=== PATIENT | male | born 1975 | race Caucasian/White ===

== ENCOUNTER → 2020-09-02 | Outpatient (REF) | payer OTHER ==
[2020-09-02 17:11] LABS: C REACTIVE PROTEIN QUANTITATIV 0.33 MG/DL (0.00-0.30)
[2020-09-02 17:47] LABS: HEPATITIS B SURFACE ANTIGEN NEGATIVE (NEGATIVE)
[2020-09-02 18:14] LABS: HEPATITIS C VIRUS ABY INDEX < 0.0 INDEX (<0.8)
[2020-09-02 18:15] LABS: HEPATITIS B CORE ANTIBODY IGM NEGATIVE (NEGATIVE)
[2020-09-02 18:16] LABS: HEPATITIS A ANTIBODY IGM NEGATIVE (NEGATIVE)
== END ==
LOC: M LAB REF 16:26
PROVIDERS: ATTEND Registered Nurse
DX: Z00.00 Encounter for general adult medical examination without abnormal findings (principal); R10.32 Left lower quadrant pain

== ENCOUNTER → 2020-10-24 | Outpatient (CLI) | payer OTHER | LOC: M LABSMTC 08:14 | PROVIDERS: ATTEND Anesthesiology | DX: Z01.812 Encounter for preprocedural laboratory examination (principal); Z20.822 Contact with and (suspected) exposure to COVID-19 ==

== ENCOUNTER 2020-10-29 08:26 | Day surgery (SDC) | payer OTHER ==
[~2020-10-29] VITALS: Ht 188 cm; Wt 100.2 kg
[~2020-10-29 08:26] MED LIST: LIDOCAINE 2% 100MG/5ML SDV (FOR ANES.) As Ordered ONE; NS 1,000 ML IV ONE; propofoL 200 MG/20 ML VIAL As Ordered ONE
--- OUTSIDE RECORDS SUMMARY | 2020-10-29 08:40 | CCD | Continuity of Care Document ---
Author Author Hussain KEN [facility] Organization Unknown Address [address] [address] Phone [phone] Care Team Providers Care Dialysis Patient Care Technician Name Role Phone Cammy Ken AUTM [phone] Problems Description No Information Available Social History Type Date Description Comments Sex Unknown ETOH Use Currently consumes alcohol Twice weekly, 5 drinks at a time Recreational Drug Use Denies Drug Use Tobacco Use Start: Unknown Patient is a current smoker, smo kes every day 1 ppd x20 years Exercise Type/Frequency Exercises regularly 4x/ week, cardio and lifts weights Guns in Home Yes, Locked Up Allergies, Adverse Reactions, Alerts Description No Known Drug Allergies Medications Active Medications SIG Qnty Indications Ordering Provide r Date Proair HFA 108(90Base) mcg/Act Aer osol 2 puffs up to four times daily as needed for wheezing 8.500gm R06.2 Memo Fung MD 02/21/2020 Famotidine 20mg Tablets Take One Tablet By Mouth Every Day 30tabs Memo Fung MD 10/23/2019 Medications Administered in Office Medication SIG Qnty Indications Ordering Provider Date Immunization Adminstration,1 Vaccine/Tox oid Injection CATHY Bro 9 Immunizations CPT Code Status Date Vaccine Lot # [id number] Given 08/23/2019 Influenza Vaccin e Quadrivalent Preser/Antibiotic Free Im Use [id number] Vital Signs Date Vital Result Comment 09/02/2020 8:28am BP Systolic 132 mmHg BP Diastolic 80 mmHg Heart Rate 91 /min Height 72 inches 6'0" Weight 220.00 lb O2 % BldC Oximetry 98 % BMI (Body Mass Index) 29.8 kg/m2 02/21/2020 8:00am BP Systolic 128 mmHg LT Arm BP Diastolic 80 mmHg LT Arm Heart Rate 88 /min Height 72 inches 6'0" Weight 219.00 lb BMI (Body Mass Index) 29.7 kg/m2 Results Test Acquired Date Facility Test Result H/L Range Note Complete Blood Count 09/02/2020 [place] [employer] jack ratliff Supervisor [employer]: [place] [address] [phone] WBC 6.9 x10*3/UL 4.1 - 10.9 RBC 5.12 x10*6/UL 4.20 - 6.30 Hemoglobin 14.4 g/dL 12.0 - 18.0 Hematocrit 41.5 % 37.0 - 51.0 MCV 80.9 fL 80.0 - 97.0 MCH 28.1 pg 26.0 - 32.0 MCHC 34.7 g/dL 31.0 - 38.0 RDW 13.3 % 11.6 - 13.7 PLT 276 x10*3/UL 140 - 440 MPV 7.5 FL Low 7.8 - 11.0 Lymph % 28.5 % 10.0 - 58.5 Mid % 6.9 % 1.7 - 9.3 Neut % 64.6 % 37.0 - 92.0 Lymph # 1.9 x10*3/UL 0.6 - 4.1 Mid # 0.5 x10*3/UL 0.1 - 0.6 Neut # 4.5 x10*3/UL 2.0 - 7.8 Comprehensive Chem Profile 09/02/2020 [place] jack Mason Supervisor [employer]: [place] [address] [phone] Glucose 93 mg/dL 74 - 99 1 BUN 18 mg/dL 7 - 18 Creatinine 1.2 mg/dL 0.6 - 1.3 Sodium 143 mEq/L 136 - 145 Potassium 4.7 mEq/L 3.5 - 5.1 Chloride 105 mEq/L 98 - 107 Carbon Dioxide 28 mEq/L 21 - 32 Calcium 9.3 mg/dL 8.5 - 10.1 Alk. Phosphatase 58 mg/dL 46 - 116 Total Bilirubin 0.4 mg/dL 0.2 - 1.0 Ast (Sgot) 42 U/L High 15 - 37 2 Alt (SGPT) 94 U/L High 12 - 78 Albumin 4.1 g/dL 3.4 - 5.0 Total Protein 7.3 g/dL 6.4 - 8.2 A/G Ratio 1.28 CALC 1.00 - 1.90 GFR >= 60 mL/min >60 GFR >= 60 mL/min >60 3 Lipid Profile 09/02/2020 [facility] Supervisor [place] [employer]: Dr Memo Fung [place] [id number] [phone] Cholesterol 244 mg/dL High 131 - 200 Triglycerides 86 mg/dL 30 - 150 HDL Cholesterol 56 mg/dL 35 - 60 LDL (Calculated) 171 CALC High 50 - 159 Laboratory test finding 09/02/2020 [facility] Supervisor [place]: Dr Memo Fung [place] [id number] [phone] Sed Rate 16 mm/hr High 0 - 15 Laboratory test finding 09/02/2020 [facility] [address] [place] [address] [phone] C Reactive Protein Quantitativ 0.33 mg/dL High 0 .00-0.30 Hepatitis Profile 09/02/2020 [facility] nter [address] [place] [address] [phone] Hepatitis C Virus Sarah Index < 0.0 INDEX Normal <0. 8 Hepatitis B Surface Antigen NEGATIVE Normal Negative Hepatitis B Core Antibody Igm NEGATIVE Normal Negative Hepatitis A Antibody Igm NEGATIVE Normal Negative 1 100-125 mg/dL PRE-DIABET ES/FASTING >126 mg/dL DIABETES/FASTING 2 NOTE: AST,ALT VERIFIED 3 CHRONIC KIDNEY DISEASE STAGI NG PER NKF STAGE I & II GFR >= 60 NORMAL TO MILDLY DECREASED STAGE III GFR 30-59 MODERATELY DECREASED STAGE IV GFR 15-29 SEVERELY DECREASED STAGE V GFR <15 VERY LITTLE GFR LEFT ESRD GFR <15 ON DIGITIZER Procedures Description No Information Available Medical Devices Description No Information Available Encounters Description No Information Available Assessments Date Code Description Provider 09/02/2020 Z00.00 Encounter for genera l adult medical examination without abnormal findings CATHY Bro 09/02/2020 K21.9 Gastro-esophageal reflux disease without esophagitis CATHY Bro 09/02/2020 R10.32 Left lower quadrant pain CATHY Bro 09/02/2020 E78.00 Pure hypercholesterolemia, unspe cified Cammy Ken, ADOLESCENT PSYCHIATRIST 09/02/2020 R06.2 Wheezing Cammy Ken, F RN INTERN 09/02/2020 E66.3 Overweight Cammy Ken, Neptali RN INTERN 09/02/2020 M54.5 Low back pain Neptali Bro RN INTERN Plan of Treatment Future Appointment(s):* 09/03/2021 8:00 am - CATHY Bro at [facility] 09/02/2020 - CATHY Bro* Z00.00 Encounter for general adult medical examination without abnormal findings* Comments:* Follow up annually. Normal exam and is healthy. Continue diet and exercise. Declines flu vaccine. * K21.9 Gastro-esophageal reflux disease without esophagitis* Comments:* Uses famotidine when needed. Provides good relief. * R10.32 Left lower quadrant pain* New Xrays:* CT Abd/Pelvis With And Without Contrast, Scheduled: 09/03/20 * Comments:* Check CBC, ESR and CRP. I will schedule a CT abdomen/pelvis to further evaluate. * E78.00 Pure hypercholesterolemia, unspecified* Comments:* Lipids are pending. Encouraged Mediterranean diet; Low fat/high fiber diet encouraged coupled with regular exercise. * R06.2 Wheezing* Comments:* Very occasional, but does use the ProAir if needed. The inhaler does alleviate his symptoms. * E66.3 Overweight* Comments:* Weight loss would be favorable- portion control, balanced diet and regular exercise are encouraged. * M54.5 Low back pain* Comments:* Improving. We discussed heat TID, topical analgesics as directed as well as ibuprofen daily with breakfast x 7 days as directed. I encouraged rest and avoiding activity that will aggrevate the pain. I did recommend gentle stretches and some activity, but those of little resistance. May consider chiropractor in the future if he desires, but I have asked him to wait until after CT abdomen/pelvis. * All * Comments:* Follow up in one year, sooner PRN. Encouraged balanced diet, 4-5 servings of fresh fruits and vegetables daily. Recommended at least 30 minutes of exercise daily and eight 8 oz. glasses of water daily.Testicular self exams encouraged monthly.RTC PRN for acute illness.Flu shot advised, declined by patient. COVID precautions are discussed and social distancing/mask use/ frequent hand washing and sanitizing are encouraged. Functional Status Description No Information Available Mental Status Description No Information Available Referrals Description No Information Available
--- OUTSIDE RECORDS SUMMARY | 2020-10-29 08:40 | CCD | Continuity of Care Document ---
Author Author Hussain KEN [facility] Organization Unknown Address [address] [address] Phone [phone] Care Team Providers Care Respiratory Care Faculty Name Role Phone Cammy Ken AUTM [phone] Problems Description No Information Available Social History [...] SIG Qnty Indications Ordering Provide r Date Chantix Starting Month Joao 0.5mg X 11 & 1 mg X 42 Tablets take as directed 53tabs Memo Fung MD 09/04/2020 Chantix Continuing Month Joao 1mg T ablets take 1 tablet by mouth every day as directed 56tabs Col hansel Fung MD 09/04/2020 Proair HFA 108(90Base) mcg/Act Aer osol 2 [...] CPT Code Status Date Vaccine Lot # [id number] Given 08/23/2019 Influenza Vaccin e Quadrivalent Preser/Antibiotic Free Im Use [id number] Vital Signs Date Vital Result Comment 09/02/2020 [...] H/L Range Note Complete Blood Count 09/02/2020 [place] [employer] jack ratliff Seam Feller: [place] [address] [phone] WBC 6.9 x10*3/UL 4.1 - 10.9 RBC [...] 2.0 - 7.8 Comprehensive Chem Profile 09/02/2020 [place] jack Mason Seam Feller: [place] [address] [phone] Glucose 93 mg/dL 74 - 99 1 [...] 60 mL/min >60 3 Lipid Profile 09/02/2020 [facility] Seam Feller: Dr Memo [place] [id number] [phone] Cholesterol 244 mg/dL High 131 - 200 Triglycerides 86 mg/dL 30 - 150 HDL Cholesterol 56 mg/dL 35 - 60 LDL (Calculated) 171 CALC High 50 - 159 Laboratory test finding 09/02/2020 [facility] Seam Feller: [place] [address] [phone] Sed Rate 16 mm/hr High 0 - 15 Laboratory test finding 09/02/2020 [facility] [address] [place] [address] [phone] C Reactive Protein Quantitativ 0.33 mg/dL High 0 .00-0.30 Hepatitis Profile 09/02/2020 [facility] nter [address] [place] [address] [phone] Hepatitis C Virus Sarah Index < 0.0 [...] LITTLE GFR LEFT ESRD GFR <15 ON PEANUT SEPARATOR Procedures Description No Information Available Medical Devices Description No Information Available Encounters Type Date Location Provider Dx Diagnosis Office Visit 09/02/2020 8:40a [facility] CATHY Mejia Z00.00 Encntr for general adult medical exam w/ o abnormal findings K21.9 Gastro-esophageal reflux dis ease without esophagitis R10.32 Left lower quadrant pain E78.00 Pure hypercholesterolemia, u nspecified R06.2 Wheezing M54.5 Low back pain E66.3 Overweight Z68.29 Body mass index [BMI] 29.0-2 9.9, adult Assessments Date Code Description Provider 09/02/2020 Z00.00 Encounter for genera l adult medical examination without abnormal findings Cammy Ken, CATHY 09/02/2020 K21.9 Gastro-esophageal reflux disease without esophagitis CATHY Bro 09/02/2020 R10.32 Left lower quadrant pain CATHY Bro 09/02/2020 E78.00 Pure hypercholesterolemia, unspe cified CATHY Bro 09/02/2020 R06.2 Wheezing Cammy Ken, F DISTRIBUTION ENGINEER 09/02/2020 M54.5 Low back pain Cammy Ken, F DISTRIBUTION ENGINEER 09/02/2020 E66.3 Overweight Cammy Ken, F DISTRIBUTION ENGINEER 09/02/2020 Z68.29 Body mass index [BMI] 29.0-29.9, adult CATHY Bro Plan of Treatment Future Appointment(s):* 09/03/2021 8:00 am - CATHY Bro at [facility] 09/02/2020 - CATHY Bro* Z00.00 Encounter for general adult medical examination without abnormal findings* Comments:* Follow up annually. Normal exam and is healthy. Continue diet and exercise. Declines flu vaccine. * K21.9 Gastro-esophageal reflux disease without esophagitis* Comments:* Uses famotidine when needed. Provides good relief. * R10.32 Left lower quadrant pain* Comments:* Check CBC, ESR and CRP. I will schedule a CT abdomen/pelvis to further evaluate. * E78.00 Pure hypercholesterolemia, unspecified* Comments:* Lipids are pending. Encouraged Mediterranean diet; Low fat/high fiber diet encouraged coupled with regular exercise. * R06.2 Wheezing* Comments:* Very occasional, but does use the ProAir if needed. The inhaler does alleviate his symptoms. * M54.5 Low back pain* Comments:* Improving. [...] to wait until after CT abdomen/pelvis. * E66.3 Overweight* Comments:* Weight loss would be favorable- portion control, balanced diet and regular exercise are encouraged. * Z68.29 Body mass index [BMI] 29.0-29.9, adult * All * Comments:* Follow up in [...] Mental Status Description No Information Available Referrals Refer to Reason for Referral Status Appt Date Mehul Lerma DO CONSULT FOR LLQ PAIN AND ABNORMAL CT ABD/PELVI S [facility] [address], [address] [place] [address] [phone]
--- OUTSIDE RECORDS SUMMARY | 2020-10-29 08:40 | CCD | Continuity of Care Document ---
Author Author Hussain KEN [facility] Organization Unknown Address [address] [address] Phone [phone] Care Team Providers Care Divider Operator Name Role Phone Cammy Ken AUTM [phone] Problems Description No Information Available Social History [...] CPT Code Status Date Vaccine Lot # [id number] Given 08/23/2019 Influenza Vaccin e Quadrivalent Preser/Antibiotic Free Im Use [id number] Vital Signs Date Vital Result Comment 09/02/2020 [...] H/L Range Note Complete Blood Count 09/02/2020 [place] [employer] Intern jack ratliff [employer] Banker: [place] [address] [phone] WBC 6.9 x10*3/UL 4.1 - 10.9 RBC [...] 2.0 - 7.8 Comprehensive Chem Profile 09/02/2020 [place] jack Mason [employer] Banker: [place] [address] [phone] Glucose 93 mg/dL 74 - 99 1 [...] 60 mL/min >60 3 Lipid Profile 09/02/2020 [facility] [employer] Banker: Dr Memo Fung [place] [id number] [phone] Cholesterol 244 mg/dL High 131 - 200 Triglycerides 86 mg/dL 30 - 150 HDL Cholesterol 56 mg/dL 35 - 60 LDL (Calculated) 171 CALC High 50 - 159 Laboratory test finding 09/02/2020 [place] [facility] [employer] Banker: Dr Memo Fung [place] [id number] [phone] Sed Rate 16 mm/hr High 0 - 15 Laboratory test finding 09/02/2020 [facility] [address] [place] [address] [phone] C Reactive Protein Quantitativ 0.33 mg/dL High 0 .00-0.30 Hepatitis Profile 09/02/2020 [facility] nter [address] [place] [address] [phone] Hepatitis C Virus Sarah Index < 0.0 [...] LITTLE GFR LEFT ESRD GFR <15 ON PASTRY FINISHER Procedures Description No Information Available Medical Devices Description No Information Available Encounters Description No Information Available Assessments Date Code Description Provider 09/02/2020 Z00.00 Encounter for genera l adult medical examination without abnormal findings CATHY Bro 09/02/2020 K21.9 Gastro-esophageal reflux disease without esophagitis CATHY Bro 09/02/2020 R10.32 Left lower quadrant pain CATHY Bro 09/02/2020 E78.00 Pure hypercholesterolemia, unspe cified Cammy Ken, CABINET PROFESSIONAL 09/02/2020 R06.2 Wheezing Cammy Ken, F ENROLLMENT REPRESENTATIVE 09/02/2020 E66.3 Overweight Cammy Ken, Neptali ENROLLMENT REPRESENTATIVE 09/02/2020 M54.5 Low back pain Neptali Bro ENROLLMENT REPRESENTATIVE Plan of Treatment Future Appointment(s):* 09/03/2021 8:00 am - CATHY Bro at [facility] 09/02/2020 - CATHY Bro* Z00.00 [...]
--- OUTSIDE RECORDS SUMMARY | 2020-10-29 08:40 | CCD ---
Continuity of Care Document (CCD) Created on: 09/04/2020 Hussain Hay External Reference #: [id number] : [id number] Sex: Male Author Author Hussain KEN [facility] Organization Unknown Address [address] [address] Phone [phone] Care Team Providers Care Telephoto Installer Name Role Phone Cammy Ken AUTM [phone] Problems Description No Information Available Social History [...] CPT Code Status Date Vaccine Lot # [id number] Given 08/23/2019 Influenza Vaccin e Quadrivalent Preser/Antibiotic Free Im Use [id number] Vital Signs Date Vital Result Comment 09/02/2020 [...] H/L Range Note Complete Blood Count 09/02/2020 [facility] [employer] jack ratliff Sew On Operator: [place] [address] [phone] WBC 6.9 x10*3/UL 4.1 - 10.9 RBC [...] 2.0 - 7.8 Comprehensive Chem Profile 09/02/2020 [facility] jack Mason Sew On Operator: [place] [address] [phone] Glucose 93 mg/dL 74 - 99 1 [...] 60 mL/min >60 3 Lipid Profile 09/02/2020 [facility] Sew On Operator: Dr Memo Fung [place] [id number] [phone] Cholesterol 244 mg/dL High 131 - 200 Triglycerides 86 mg/dL 30 - 150 HDL Cholesterol 56 mg/dL 35 - 60 LDL (Calculated) 171 CALC High 50 - 159 Laboratory test finding 09/02/2020 [facility] Sew On Operator: Dr Memo Fung [place] [id number] [phone] Sed Rate 16 mm/hr High 0 - 15 Laboratory test finding 09/02/2020 [facility] [address] [place] [address] [phone] C Reactive Protein Quantitativ 0.33 mg/dL High 0 .00-0.30 Hepatitis Profile 09/02/2020 [facility] nter [address] [place] [address] [phone] Hepatitis C Virus Sarah Index < 0.0 [...] LITTLE GFR LEFT ESRD GFR <15 ON POLICY ADVISOR Procedures Description No Information Available Medical Devices Description No Information Available Encounters Description No Information Available Assessments Date Code Description Provider 09/02/2020 Z00.00 Encounter for genera l adult medical examination without abnormal findings CATHY Bro 09/02/2020 K21.9 Gastro-esophageal reflux disease without esophagitis CATHY Bro 09/02/2020 R10.32 Left lower quadrant pain CATHY Bro 09/02/2020 E78.00 Pure hypercholesterolemia, unspe cified Cammy Ken, RADIOLOGY SCHEDULER 09/02/2020 R06.2 Wheezing Cammy Ken, F VOICE WRITING REPORTER 09/02/2020 E66.3 Overweight Cammy Ken, Neptali VOICE WRITING REPORTER 09/02/2020 M54.5 Low back pain Neptali Bro VOICE WRITING REPORTER Plan of Treatment Future Appointment(s):* 09/03/2021 8:00 am - CAHTY Bro at [facility] 09/02/2020 - CATHY Bro* Z00.00 [...]
--- OUTSIDE RECORDS SUMMARY | 2020-10-29 08:40 | CCD | Continuity of Care Document ---
Author Author Hussain FRANCES MD Organization Unknown Address [address] [place] [address] Phone [phone] Care Team Providers Care Mis Specialist Name Role Phone Cammy Ken AUTM [phone] AUTM Unavailable Memo Fung MD @ [facility] AUTM [phone] Problems Description No Information Available Social History Type Date Description Comments Sex Unknown ETOH Use Denies alcohol use Tobacco Use Start: Unknown 1 PPD X 20 YRS Recreational Drug Use Denies Drug Use Allergies, Adverse Reactions, Alerts Description No Known Drug Allergies Medications Active Medications SIG Qnty Indications Ordering Provide r Date Loratadine 10mg Tablets 1 by mouth every day Unknown Omeprazole 20mg Capsules DR 1 by mouth every day Unknown Immunizations Description No Information Available Vital Signs Date Vital Result Comment 09/23/2020 1:41pm BP Systolic 154 mmHg BP Diastolic 92 mmHg Height 74 inches 6'2" Weight 225.00 lb BMI (Body Mass Index) 28.9 kg/m2 [place] Body Weight 190 lb Weight 102.060 kg BSA (Body Surface Area) 2.29 m2 09/23/2019 11:35am Height 74 inches 6'2" Weight 218.00 lb BMI (Body Mass Index) 28.0 kg/m2 [place] Body Weight 190 lb Weight 98.885 kg BSA (Body Surface Area) 2.25 m2 Results Description No Information Available Procedures Description No Information Available Medical Devices Description No Information Available Encounters Description No Information Available Assessments Description No Information Available Plan of Treatment No Information Available Functional Status Description No Information Available Mental Status Description No Information Available Referrals Refer to Reason for Referral Status Appt Date Duncan Frances JR, MD LEFT LOWER QUADRANT PAIN/ ABNORMAL CT Cr eated 09/23/2020 [address] [facility] [address] [place] [address] [phone]
--- OUTSIDE RECORDS SUMMARY | 2020-10-29 08:41 | CCD ---
Author Author [facility] Organization [facility] Address Unknown Phone Unavailable Care Team Providers Care Software Design Analyst Name Role Phone Jesus Manuel, Cammy SENIOR NET SOFTWARE ENGINEER Unavailable Unavailable Jesus Manuel, Cammy SENIOR NET SOFTWARE ENGINEER Unavailable Unavailable Jesus Manuel, Cammy SENIOR NET SOFTWARE ENGINEER Unavailable Unavailable Jesus Manuel, Cammy SENIOR NET SOFTWARE ENGINEER Unavailable Unavailable Jesus Manuel, Cammy SENIOR NET SOFTWARE ENGINEER Unavailable Unavailable Jesus Manuel, Cammy SENIOR NET SOFTWARE ENGINEER Unavailable Unavailable Jesus Manuel, Cammy SENIOR NET SOFTWARE ENGINEER Unavailable Unavailable Jesus Manuel, Cammy SENIOR NET SOFTWARE ENGINEER Unavailable Unavailable Jesus Manuel, Cammy SENIOR NET SOFTWARE ENGINEER Unavailable Unavailable Jesus Manuel, Cammy SENIOR NET SOFTWARE ENGINEER Unavailable Unavailable Jesus Manuel, Cammy SENIOR NET SOFTWARE ENGINEER Unavailable Unavailable Jesus Manuel, Cammy SENIOR NET SOFTWARE ENGINEER Unavailable Unavailable Jesus Manuel, Cammy SENIOR NET SOFTWARE ENGINEER Unavailable Unavailable Jesus Manuel, Cammy SENIOR NET SOFTWARE ENGINEER Unavailable Unavailable Jesus Manuel, Cammy SENIOR NET SOFTWARE ENGINEER Unavailable Unavailable Jesus Manuel, Cammy SENIOR NET SOFTWARE ENGINEER Unavailable Unavailable Jesus Manuel, Cammy SENIOR NET SOFTWARE ENGINEER Unavailable Unavailable Jesus Manuel, Cammy SENIOR NET SOFTWARE ENGINEER Unavailable Unavailable Jesus Manuel, Cammy SENIOR NET SOFTWARE ENGINEER Unavailable Unavailable Jesus Manuel, Cammy SENIOR NET SOFTWARE ENGINEER Unavailable Unavailable Jesus Manuel, Cammy SENIOR NET SOFTWARE ENGINEER Unavailable Unavailable Jesus Manuel, Cammy SENIOR NET SOFTWARE ENGINEER Unavailable Unavailable Jesus Manuel, Cammy SENIOR NET SOFTWARE ENGINEER Unavailable Unavailable Jesus Manuel, Cammy SENIOR NET SOFTWARE ENGINEER Unavailable Unavailable Jesus Manuel, Cammy SENIOR NET SOFTWARE ENGINEER Unavailable Unavailable Jesus Manuel, Cammy SENIOR NET SOFTWARE ENGINEER Unavailable Unavailable Jesus Manuel, Cammy SENIOR NET SOFTWARE ENGINEER Unavailable Unavailable Re-disclosure Warning The records that you are about to access may contain information from federally-assisted alcohol or drug abuse programs. If such information is present, then the following federally mandated warning applies: This information has been disclosed to you from records protected by federal confidentiality rules (42 CFR part 2). The federal rules prohibit you from making any further disclosure of this information unless further disclosure is expressly permitted by the written consent of the person to whom it pertains or as otherwise permitted by 42 CFR part 2. A general authorization for the release of medical or other information is NOT sufficient for this purpose. The Federal rules restrict any use of the information to criminally investigate or prosecute any alcohol or drug abuse patient.The records that you are about to access may contain highly sensitive health information, the redisclosure of which is protected by Article 27-F of the [facility] Public Health law. If you continue you may have access to information: Regarding HIV / AIDS; Provided by facilities licensed or operated by the [facility] Office of Mental Health; or Provided by the [facility] Office for People With Developmental Disabilities. If such information is present, then the following [facility] mandated warning applies: This information has been disclosed to you from confidential records which are protected by state law. State law prohibits you from making any further disclosure of this information without the specific written consent of the person to whom it pertains, or as otherwise permitted by law. Any unauthorized further disclosure in violation of state law may result in a fine or custodial sentence or both. A general authorization for the release of medical or other information is NOT sufficient authorization for further disc losure. Encounters Encounter Providers Location Date Indications Data Source(s ) Outpatient Attender: Cammy Jim 07:40:00 AM EST [facility] ([facility] ) Outpatient Attender: Cammy Jim 08:00:00 AM EDT [facility] ([facility] ) Outpatient Attender: Cammy Jim 07:00:00 AM EST [facility] ([facility] ) Medications Medication Brand Name Start Date Product Form Dose Route Admi nistrative Instructions Pharmacy Instructions Status Indications Reaction Description Data Source(s) 17.5-3.13-1.6 gram 10/23/2020 12:00:00 AM EST recon soln 354 TAKE PER DOCTOR'S BOWEL PREP INSTRUCTIONS TAKE PER DOCTOR'S BOWEL PREP INSTRUCTIONS SOLD: 10/28/2020 [facility] 0.5 mg (11)- 1 mg (42) 09/04/2020 12:00:00 AM EST tablets,do se pack 53 TAKE BY MOUTH DIRECTED TAKE BY MOUTH DIRECTED SOLD: 09/11/2020 [facility] Chantix Starting Month Joao Chantix Starting Month Joao 2019 12:00:00 AM EST active [facility] ([facility]) Chantix Continuing Month Joao Chantix Continuing Month Joao 12:00:00 AM EST ORAL active [facility] ([facility]) 200 ACTUAT Albuterol 0.09 MG/ACTUAT Metered Dose Inhaler [Pr oAir] Proair HFA 02/21/2020 12:00:00 AM EDT RESPIRATORY active [facility] ([facility]) 90 mcg/actuation 02/21/2020 12:00:00 AM EDT HFA aerosol inha ler 8 INHALE 2 PUFFS BY MOUTH UP TO 4 TIMES DAILY NEEDED FOR WHEEZING INHALE 2 PUFFS BY MOUTH UP TO 4 TIMES DAILY NEEDED FOR WHEEZING SOLD: 02/21/2020 [facility] 20 mg 10/31/2019 12:00:00 AM EST tablet 30 TAKE ONE TABLET BY MOUTH EVERY DAY TAKE ONE TABLET BY MOUTH EVERY DAY SOLD: 11/07/2019 [facility] 20 mg 10/31/2019 12:00:00 AM EST tablet 30 TAKE ONE TABLET BY MOUTH EVERY DAY TAKE ONE TABLET BY MOUTH EVERY DAY SOLD: 06/17/2020 [facility] Famotidine 20 MG Oral Tablet FAMOTIDINE 10/31/2019 12:00:00 AM EST tab let 30 TAKE ONE TABLET BY MOUTH EVERY DAY TAKE ONE TABLET BY MOUTH EVERY DAY SOLD: 12/10/2019 [facility] 20 mg 10/31/2019 12:00:00 AM EST tablet 30 TAKE ONE TABLET BY MOUTH EVERY DAY TAKE ONE TABLET BY MOUTH EVERY DAY SOLD: 01/27/2020 [facility] Famotidine 20 MG Oral Tablet FAMOTIDINE 10/31/2019 12:00:00 AM EST tab let 27 TAKE ONE TABLET BY MOUTH EVERY DAY TAKE ONE TABLET BY MOUTH EVERY DAY SOLD: 03/04/2020 [facility] Famotidine 20 MG Oral Tablet Famotidine 10/23/2019 12:00:00 AM EST active [facility] ([facility]) No Active Medications 10/23/2019 12:00:00 AM EST completed [facility] ([facility]) 500 mg 09/19/2019 12:00:00 AM EST capsule 28 TAKE ONE CAPSULE BY MOUTH FOUR TIMES A DAY FOR 7 DAYS TAKE ONE CAPSULE BY MOUTH FOUR TIMES A DAY FOR 7 DAYS SOLD: 09/19/2019 [facility] Cephalexin 500 MG Oral Capsule Cephalexin 09/19/2019 12:00:00 AM EST completed [facility] ([facility]) Insurance Providers Payer name Policy type / Coverage type Policy ID Covered alliance party ID Covered alliance party's relationship to guillory Policy Guillory Plan Information [facility] [id number] SP [id number] [facility] [id number] SP [id number] UMR O [id number] S [id number] [employer] P[employer] O [id number] S [id number] [employer] [id number] SP [id number] Results ID Date Data Source [id number] 10/24/2020 09:00:00 AM EST [facility] Name Value Range Interpretation Code Description Data Dana rce(s) Supporting Document(s) SARS coronavirus 2 RNA Not Detected [facility] This lab was ordered by [facility] and reported by [facility]. ID Date Data Source [id number] 09/03/2020 12:00:00 AM EST [facility] Cammy Ken Np Patient Name: ABDI AMBROCIO [id number] [facility] Date of : 1975[place] [address] Date of Exam: 09/03/2020#: Fax: [phone] EXAM: CT ABDOMEN & PELVIS WITHOUT&WITH CONTRASTCLINICAL INFORMATION: Left lower quadrant pain x a few months.Low dose [address] scanning of the abdomen and pelvis wasobtained before and after the administration of intravenous contrast using3 mm increments and reconstructed in both sagittal and coronal scan planes. Immediate and delayed post contrast enhanced imaging was obtained throughthe abdomen. 75 cc of Optiray 350 was administered intravenously.There are no prior CT's of the abdomen and pelvis for comparison.The lung bases are clear.The pre-contrast enhanced portion of the examination shows hepatic andsplenic densities to be within normal limits. There is nonephroureterolithiasis, hydronephrosis, or hydroureter. There are nourinary bladder calcifications. There are bilateral pelvic phleboliths andthere is slight corpora amylacea. There are no choleliths.The contrast enhanced portion of the portion of the examination shows theliver, gallbladder, spleen, pancreas, adrenal glands and kidneys to bewithin normal limits. The abdominal aorta and paraaortic regions arewithin normal limits. The intraabdominal bowel loops and their mesenteriesare within normal limits. There is no free fluid or free air. There is nointraabdominal mass or adenopathy.There is potential asymmetric thickening of the rectal wall on the left.This is not opacified with the oral bowel preparatory contrast and is seenin a limited fashion. There is no pelvic adenopathy. There is no freefluid or free air.The osseous structures are within normal limits for the patient's age.IMPRESSION:1. Possible rectal finding as described above. This needs furtherevaluation. Colonoscopy should be considered.2. Other findings as described above.Accredited by the [employer] in [place].MARYLOU Sherman/Enrique you for referring ABDI AMBROCIO to our office. Electronically Signed - DAVID SAUL DO 09/04/20 16:56 Name Value Range Interpretation Code Description Data Dana rce(s) Supporting Document(s) ID Date Data Source [id number] 09/02/2020 08:20:00 AM EST [facility] ([facility]) Name Value Range Interpretation Code Description Data Dana rce(s) Supporting Document(s) Hepatitis C Virus Sarah Index Laboratory test result [facility] ([facility]) Hepatitis A Antibody Igm Laboratory test result [facility] ([facility]) Hepatitis B Surface Antigen Laboratory test result [facility] ([facility]) Hepatitis B Core Antibody Igm Laboratory test result [facility] ([facility]) ID Date Data Source [id number] 09/02/2020 08:20:00 AM EST [facility] ([facility]) Name Value Range Interpretation Code Description Data Dana rce(s) Supporting Document(s) C reactive protein [Mass/volume] in Serum or Plasma by High sensitivity method 0.33 mg/dL 0.00-0.30 [facility] ID Date Data Source [id number] 09/02/2020 08:20:00 AM EST [facility] ([facility]) Name Value Range Interpretation Code Description Data Dana rce(s) Supporting Document(s) Erythrocyte sedimentation rate by Westergren method 16 mm/hr 0-15 [facility] ID Date Data Source [id number] 09/02/2020 08:20:00 AM EST [facility] Name Value Range Interpretation Code Description Data Dana rce(s) Supporting Document(s) Cholesterol [Mass/volume] in Serum or Plasma 244 mg/dL 131-200 [facility] ([facility]) Cholesterol in HDL [Mass/volume] in Serum or Plasma 56 mg/dL 35-60 [facility] ([facility]) Triglyceride [Mass/volume] in Serum or Plasma 86 mg/dL 30-150 [facility] ([facility]) Cholesterol in LDL [Mass/volume] in Serum or Plasma by calcu lation 171 CALC 50-159 [facility] ID Date Data Source [id number] 09/02/2020 08:20:00 AM EST [facility] Name Value Range Interpretation Code Description Data Dana rce(s) Supporting Document(s) Urea nitrogen [Mass/volume] in Serum or Plasma 18 mg/dL 7-18 [facility] ([facility]) Glucose [Mass/volume] in Serum or Plasma 93 mg/dL 74-99 [facility] ([facility]) 100-125 mg/dL PRE-DIABETES/FASTING >126 mg/dL DIABETES/FASTING Sodium [Moles/volume] in Serum or Plasma 143 meq/L 136-145 [facility] ([facility]) Creatinine 1.2 mg/dL 0.6-1.3 [facility]) Potassium [Moles/volume] in Serum or Plasma 4.7 meq/L 3.5-5.1 [facility] ([facility]) Chloride [Moles/volume] in Serum or Plasma 105 meq/L 98-107 [facility] ([facility]) Calcium [Mass/volume] in Serum or Plasma 9.3 mg/dL 8.5-10.1 [facility] ([facility]) Carbon dioxide, total [Moles/volume] in Serum or Plasma 28 meq/L 21 -32 [facility] ([facility]) Aspartate aminotransferase [Enzymatic activity/volume] in Serum or Plasma 42 U/L 15-37 [facility] ([facility] ) NOTE: AST,ALT VERIFIED Alkaline phosphatase isoenzyme [Units/volume] in Serum or Pl asma 58 mg/dL 46-116 [facility] ([facility]) Total Bilirubin 0.4 mg/dL 0.2-1.0 [facility] ([facility]) Alanine aminotransferase [Enzymatic activity/volume] in Seru m or Plasma 94 U/L 12-78 [facility] ([facility]) Albumin [Mass/volume] in Serum or Plasma 4.1 g/dL 3.4-5.0 [facility] ([facility]) Proteinase 3 Ab [Units/volume] in Serum 7.3 g/dL 6.4-8.2 [facility] ([facility]) A/G Ratio 1.28 CALC 1.00-1.90 [facility]) Glomerular filtration rate/1.73 sq M pre dicted among non-blacks [Volume Rate/Area] in Serum or Plasma by Creatinine-based formula (MDRD) Laboratory test result [facility] ([facility] ) Glomerular filtration rate/1.73 sq M pre dicted among blacks [Volume Rate/Area] in Serum or Plasma by Creatinine-based formula (MDRD) Laboratory test result [facility] ([facility]) <content>CHRONIC KIDNEY DISEASE STAGING PER NKF</content>
<content></content>
<content>STAGE I & II GFR >= 60 NORMAL TO MILDLY DECREASED</content>
<content>STAGE III GFR 30-59 MODERATELY DECREASED</content>
<content>STAGE IV GFR 15-29 SEVERELY DECREASED</content>
<content>STAGE V GFR <15 VERY LITTLE GFR LEFT</content>
<content>ESRD GFR <15 ON CREDIT RISK SPECIALIST</content>
<content></content> ID Date Data Source [id number] 09/02/2020 08:20:00 AM EST [facility] ([facility]) Name Value Range Interpretation Code Description Data Dana rce(s) Supporting Document(s) Erythrocytes [#/volume] in Blood by Automated count 5.12 x10*6/UL 4.2 0-6.30 [facility] ([facility]) Leukocytes [#/volume] in Blood by Automated count 6.9 x10*3/UL 4.1-10 .9 [facility] ([facility]) MCV 80.9 fL 80.0-97.0 [facility]) Hemoglobin [Mass/volume] in Blood 14.4 g/dL 12.0-18.0 [facility] ([facility]) Hematocrit [Volume Fraction] of Blood by Automated count 41.5 % 3 7.0-51.0 [facility] ([facility]) MCHC 34.7 g/dL 31.0-38.0 [facility]) MCH 28.1 pg 26.0-32.0 [facility] ([facility]) Platelets [#/volume] in Blood by Automated count 276 x10*3/UL 140-440 [facility] Erythrocyte distribution width [Ratio] by Automated count 13.3 % 11.6-13.7 [facility] ([facility]) MPV 7.5 FL 7.8-11.0 [facility]) Lymph % 28.5 % 10.0-58.5 [facility]) Mid % 6.9 % 1.7-9.3 [facility]) Lymph # 1.9 x10*3/UL 0.6-4.1 [facility] ([facility]) Neut % 64.6 % 37.0-92.0 [facility]) Mid # 0.5 x10*3/UL 0.1-0.6 [facility] ([facility]) Neut # 4.5 x10*3/UL 2.0-7.8 [facility] ([facility]) Procedure Vital Signs ID Date Data Source UNK Name Value Range Interpretation Code Description Data Source(s) Body surface area Derived from formula 2.29 m2 2.29 m2 [facility] ([facility]) Body weight 102.060 kg 102.060 kg [facility] ([facility]) [place] body weight 190 [lb_av] 190 [lb_av] [facility] Body mass index (BMI) [Ratio] 28.9 kg/m2 28.9 k g/m2 [facility] ([facility]) Body weight 225.00 [lb_av] 225.00 [lb_av] [facility] ([facility]) Body height 74 [in_i] 74 [in_i] [facility] ([facility]) 6'2" Diastolic blood pressure 92 mm[Hg] 92 mm[Hg] [facility] ([facility]) Systolic blood pressure 154 mm[Hg] 154 mm[Hg] [facility] Body mass index (BMI) [Ratio] 29.8 kg/m2 29.8 k g/m2 [facility] ([facility]) Oxygen saturation in Arterial blood by Pulse oximetry 98 % 98 % [facility] ([facility]) Body weight 220.00 [lb_av] 220.00 [lb_av] [facility] Body height 72 [in_i] 72 [in_i] [facility] ([facility]) 6'0" Heart rate 91 /min 91 /min [facility] ([facility]) Diastolic blood pressure 80 mm[Hg] 80 mm[Hg] [facility] ([facility]) Systolic blood pressure 132 mm[Hg] 132 mm[Hg] [facility] Body mass index (BMI) [Ratio] 29.7 kg/m2 29.7 k g/m2 [facility] ([facility]) Body weight 219.00 [lb_av] 219.00 [lb_av] [facility] ([facility]) Body height 72 [in_i] 72 [in_i] [facility] ([facility]) 6'0" Heart rate 88 /min 88 /min [facility] ([facility]) Diastolic blood pressure 80 mm[Hg] 80 mm[Hg] [facility] ([facility]) LT Arm Systolic blood pressure 128 mm[Hg] 128 mm[Hg] M [facility] ([facility]) LT Arm Body surface area Derived from formula 2.25 m2 2.25 m2 [facility] ([facility]) Body weight 98.885 kg 98.885 kg [facility] ([facility]) [place] body weight 190 [lb_av] 190 [lb_av] [facility] T ([facility]) Body mass index (BMI) [Ratio] 28.0 kg/m2 28.0 k g/m2 [facility] ([facility]) Body weight 218.00 [lb_av] 218.00 [lb_av] [facility] Body height 74 [in_i] 74 [in_i] [facility] ([facility]) 6'2" Body mass index (BMI) [Ratio] 30.0 kg/m2 30.0 k g/m2 [facility] ([facility]) Body weight 221.50 [lb_av] 221.50 [lb_av] [facility] Body height 72 [in_i] 72 [in_i] [facility] ([facility]) 6'0" Heart rate 84 /min 84 /min [facility] ([facility]) Diastolic blood pressure 82 mm[Hg] 82 mm[Hg] [facility] ([facility]) re-check Systolic blood pressure 138 mm[Hg] 138 mm[Hg] M SUHA ([facility]) re-check Diastolic blood pressure 86 mm[Hg] 86 mm[Hg] [facility] ([facility]) RT Arm Systolic blood pressure 142 mm[Hg] 142 mm[Hg] M SUHA ([facility]) RT Arm
--- OUTSIDE RECORDS SUMMARY | 2020-10-29 08:41 | CCD | Continuity of Care Document ---
Author Author Hussain [facility] Organization Unknown Address [phone] [address] Phone [phone] Care Team Providers Care Investigation Clerk Name Role Phone Cammy Ken AUTM [phone] Problems Description No Information Available Social History [...] CPT Code Status Date Vaccine Lot # [id number] Given 08/23/2019 Influenza Vaccin e Quadrivalent Preser/Antibiotic Free Im Use [id number] Vital Signs Date Vital Result Comment 09/02/2020 [...] BMI (Body Mass Index) 29.7 kg/m2 Results Description No Information Available Procedures Description No Information Available Medical Devices Description No Information Available Encounters Description No Information Available Assessments Description No Information Available Plan of Treatment No Information Available Functional Status Description No Information Available Mental Status Description No Information Available Referrals Description No Information Available
[2020-10-29] MEDS ORDERED: propofoL 200 MG/20 ML VIAL As Ordered ONE (09:24)
--- NOTE | 2020-10-29 09:33 | ROOR ---
Patient Name: Hussain Hay Procedure Date: 10/29/2020 9:08 AM Date of : 1975 Age: 45 Room: [facility] Gender: Male Note Status: Finalized Procedure: Colonoscopy Indications: Abdominal pain in the left lower quadrant, Abnormal CT of the GI tract Providers: Duncan Frances Jr, MD Referring MD: Memo Fung Jr, Md Requesting Provider: Medicines: Propofol per Anesthesia Complications: No immediate complications. Procedure: Pre-Anesthesia Assessment: - Prior to the procedure, a History and Physical was performed, and patient medications and allergies were reviewed. The patient is competent. The risks and benefits of the procedure and the sedation options and risks were discussed with the patient. All questions were answered and informed consent was obtained. Patient identification and proposed procedure were verified by the physician and the nurse in the pre-procedure area and in the procedure room. Mental Status Examination: alert and oriented. Airway Examination: normal oropharyngeal airway and neck mobility. Respiratory Examination: clear to auscultation. CV Examination: normal. ASA Grade Assessment: II - A patient with mild systemic disease. After reviewing the risks and benefits, the patient was deemed in satisfactory condition to undergo the procedure. The anesthesia plan was to use moderate sedation / analgesia (conscious sedation). Immediately prior to administration of medications, the patient was re-assessed for adequacy to receive sedatives. The heart rate, respiratory rate, oxygen saturations, blood pressure, adequacy of pulmonary ventilation, and response to care were monitored throughout the procedure. The physical status of the patient was re-assessed after the procedure. The Colonoscope was introduced through the anus and advanced to the terminal ileum. The colonoscopy was performed without difficulty. The patient tolerated the procedure well. Findings: The rectum, recto-sigmoid colon, sigmoid colon, transverse colon, ascending colon, cecum, appendiceal orifice, ileocecal valve and ileum appeared normal. A small polyp was found in the descending colon. The polyp was removed with a cold snare. Resection and retrieval were complete. Impression: - The rectum, recto-sigmoid colon, sigmoid colon, transverse colon, ascending colon, cecum, appendiceal orifice, ileocecal valve and terminal ileum are normal. - One small polyp in the descending colon, removed with a cold snare. Resected and retrieved. Recommendation: - Discharge patient to home (ambulatory). - Repeat colonoscopy in 5-10 years for surveillance based on pathology results. Procedure Code(s): --- Professional --- 53769, Colonoscopy, flexible; with removal of tumor(s), polyp(s), or other lesion(s) by snare technique Diagnosis Code(s): --- Professional --- K63.5, Polyp of colon R10.32, Left lower quadrant pain R93.3, Abnormal findings on diagnostic imaging of other parts of digestive tract CPT copyright 2019 [employer]. All rights reserved. The codes documented in this report are preliminary and upon ebd special education teacher review may be revised to meet current compliance requirements. Duncan Frances MD Duncan Frances Jr, MD 10/29/2020 9:33:27 AM Electronically signed by Duncan Frances Jr, MD Number of Addenda: 0 Note Initiated On: 10/29/2020 9:08 AM Estimated Blood Loss: Estimated blood loss: none.
[2020-10-29] MEDS ORDERED: KETOROLAC 60MG 2ML VIAL As Ordered ONE (09:41)
[2020-10-29 10:15] VITALS: BP 130/76
== END 2020-10-29 10:32 | disposition home or self-care (01) ==
LOC: M OPP 08:26
PROVIDERS: ATTEND Surgery
DX: R10.32 Left lower quadrant pain (principal); R93.3 Abnormal findings on diagnostic imaging of other parts of digestive tract; D12.6 Benign neoplasm of colon, unspecified; F17.210 Nicotine dependence, cigarettes, uncomplicated; K21.9 Gastro-esophageal reflux disease without esophagitis
CPT/HCPCS: 45385; 88305; J1885

== ENCOUNTER → 2022-04-06 | Outpatient (CLI) | payer OTHER | LOC: M RAD 09:09 | PROVIDERS: ATTEND Nurse Practitioner | DX: R10.32 Left lower quadrant pain (principal); R10.12 Left upper quadrant pain; N50.812 Left testicular pain ==

== ENCOUNTER → 2024-11-21 | Outpatient (CLI) | payer OTHER ==
[~2024-11-21] MED LIST changes: +ISOVUE-370 76% 100ML VIAL ONE; -LIDOCAINE 2% 100MG/5ML SDV (FOR ANES.) As Ordered ONE; -NS 1,000 ML IV ONE; -propofoL 200 MG/20 ML VIAL As Ordered ONE
== END ==
LOC: M PLAIMG 08:58
PROVIDERS: ATTEND Physician Assistant Medical
DX: R10.32 Left lower quadrant pain (principal); K76.0 Fatty (change of) liver, not elsewhere classified; K31.89 Other diseases of stomach and duodenum; K63.89 Other specified diseases of intestine
CPT/HCPCS: 74177; Q9967